=== PATIENT | female | born 1965 | race Caucasian/White ===

== ENCOUNTER 2022-11-18 17:00 | Emergency (ER) | payer MEDICAID ==
[~2022-11-18] VITALS: Wt 81.6 kg
[2022-11-18] MEDS ORDERED: Kenalog 0.5% Cr15 GM T (22:07)
== END 2022-11-18 22:31 | disposition home or self-care (01) ==
LOC: ED 17:00
DX: L25.9 Unspecified contact dermatitis, unspecified cause (principal)